=== PATIENT | male | born 1965 | race Caucasian/White ===

== ENCOUNTER 2017-12-22 16:45 | Emergency (ER) | payer MEDICAID ==
[~2017-12-22] VITALS: Ht 188 cm; Wt 119.1 kg
[~2017-12-22 16:45] MED LIST: FENO135C; HYDR1TAB PO; MELO15TA13 PO; MICO30CR; NOR5T PO; TADA5TAB2; TEST200V16; ZIPR40CA2 PO
[2017-12-22 17:12] VITALS: BP 158/117
== END 2017-12-22 18:46 | disposition home or self-care (01) ==
LOC: ER 16:46
DX: S80.12XA Contusion of left lower leg, initial encounter (principal); I10 Essential (primary) hypertension; Z98.890 Other specified postprocedural states; Z56.0 Unemployment, unspecified; Z60.2 Problems related to living alone
CPT/HCPCS: 73590; 99284

== ENCOUNTER 2018-02-24 20:10 | Emergency (ER) | payer MEDICAID ==
[~2018-02-24] VITALS: Ht 188 cm; Wt 118.2 kg
[2018-02-24 21:54] VITALS: BP 178/91
== END 2018-02-24 22:10 | disposition home or self-care (01) ==
LOC: ER 20:11
DX: S83.91XA Sprain of unspecified site of right knee, initial encounter (principal); E78.00 Pure hypercholesterolemia, unspecified; I10 Essential (primary) hypertension; Z87.891 Personal history of nicotine dependence; Z60.2 Problems related to living alone; Z79.899 Other long term (current) drug therapy; X58.XXXA Exposure to other specified factors, initial encounter; Y93.89 Activity, other specified; Y92.89 Other specified places as the place of occurrence of the external cause; Y99.8 Other external cause status
CPT/HCPCS: 73564; 99284

== ENCOUNTER 2018-08-30 09:14 | Emergency (ER) | payer MEDICAID ==
[~2018-08-30] VITALS: Ht 188 cm; Wt 77.3 kg
[2018-08-30 09:36] VITALS: BP 176/93
[2018-08-30] MEDS ORDERED: ketorolac tromethamine 15mg/ml inj. IM ONE (09:50)
[2018-08-30] MEDS ORDERED: triamcinolone acetonide 40mg/ml inj IM ONE (09:50)
[2018-08-30] MEDS ORDERED: METH4TAB81 PO (09:53)
== END 2018-08-30 10:37 | disposition home or self-care (01) ==
LOC: ER 09:15
DX: M54.5 Low back pain (principal); R10.2 Pelvic and perineal pain; I10 Essential (primary) hypertension; E78.00 Pure hypercholesterolemia, unspecified; M19.90 Unspecified osteoarthritis, unspecified site; Z60.2 Problems related to living alone; Z79.899 Other long term (current) drug therapy
CPT/HCPCS: 72100; 72170; 96372; 99283; J3301

== ENCOUNTER 2019-04-20 18:22 | Emergency (ER) | payer MEDICAID ==
[~2019-04-20] VITALS: Ht 188 cm; Wt 118.0 kg
[~2019-04-20 18:22] MED LIST changes: +METH4TAB81 PO
[2019-04-20 18:25] VITALS: BP 173/105
[2019-04-20] MEDS ORDERED: LORazepam 1 MG tablet PO ONE (19:45)
[2019-04-20] MEDS ORDERED: HYDROcodone/acetaminophen 10/325mg tab PO ONE (19:45)
[2019-04-20] MEDS ORDERED: HYDR-4353 PO (20:18)
== END 2019-04-20 20:31 | disposition home or self-care (01) ==
LOC: ER 18:22
DX: M25.561 Pain in right knee (principal); E78.00 Pure hypercholesterolemia, unspecified; I10 Essential (primary) hypertension; M19.90 Unspecified osteoarthritis, unspecified site; Z98.890 Other specified postprocedural states; Z79.899 Other long term (current) drug therapy; Z60.2 Problems related to living alone
CPT/HCPCS: 29505; 73564; 99283

== ENCOUNTER 2019-07-29 08:49 | Day surgery (SDC) | payer MEDICAID ==
[2019-07-21 14:14] LABS: BASOPHILS # (AUTO) 0.1 X10'3 (0-0.2); BASOPHILS % (AUTO) 0.7 % (0-1); EOSINOPHILS # (AUTO) 0.1 X10'3 (0-0.9); EOSINOPHILS % (AUTO) 1.5 % (0-6); LYMPHOCYTES # (AUTO) 1.3 X10'3 (1.1-4.8); LYMPHOCYTES % (AUTO) 16.2 % (21-51); MEAN CORPUSCULAR HEMOGLOBIN 31.8 PG (27.0-31.0); MEAN CORPUSCULAR HGB CONC 35.1 g/dL (33.0-36.5); MEAN CORPUSCULAR VOLUME 90.5 FL (78-98); MEAN PLATELET VOLUME 9.5 FL (7.4-10.4); MONOCYTES # (AUTO) 0.6 X10'3 (0-0.9); MONOCYTES % (AUTO) 7.2 % (2-12); NEUTROPHILS # (AUTO) 6.1 X10'3 (1.8-7.7); NEUTROPHILS % (AUTO) 74.4 % (42-75); PRE OP HEMATOCRIT 42.8 % (42.0-52.0); PRE OP PLATELET COUNT 218 X10'3 (140-440); RED BLOOD COUNT 4.73 X10'6 (4.70-6.10)
[2019-07-21 14:34] LABS: ALBUMIN/GLOBULIN RATIO 1.2 (1.1-1.5); ALKALINE PHOSPHATASE 55 IU/L (46-116); BLOOD UREA NITROGEN 21 MG/DL (7-18); BUN/CREATININE RATIO 14.6 (5.4-32.0); CALCIUM 9.1 MG/DL (8.5-10.1); CHLORIDE 106 MMOL/L (99-107); CREATININE 1.44 MG/DL (0.60-1.10); PRE OP ALT 44 U/L (30-65); PRE OP ANION GAP 9 (8-16); PRE OP AST 21 U/L (10-37); PRE OP BILIRUB, TOTAL 0.5 MG/DL (0.0-1.0); PRE OP GLUCOSE 118 MG/DL (70-104); PRE OP POTASSIUM 4.1 MMOL/L (3.4-5.1); PRE OP SODIUM 140 MMOL/L (135-145); TOTAL CARBON DIOXIDE 25.1 MMOL/L (24-32); TOTAL PROTEIN 7.4 G/DL (6.4-8.2); eGFR 51 ML/MIN
[2019-07-29] VITALS (7 sets, daily range): BP systolic 135–152; BP diastolic 80–98
[~2019-07-29] VITALS: Ht 188 cm; Wt 118.8 kg
[~2019-07-29 08:49] MED LIST changes: -HYDR1TAB PO; -METH4TAB81 PO; -MICO30CR; -TADA5TAB2; -TEST200V16; +cefazolin/dext.iso 2gm/100 ML IV ONE; +famotidine 20mg tablet PO ONE; +ringers solution, lacted 1,000 ML IV SCH; +vancomycin inj 1,500 MG in normal saline 300ml IV soln IV ONE; +vancomycin/NS 1 GM ADD-VANTAGE 250 ML X 1 DOSE IV ONE; +vancomycin/NS 500MG ADD-VANT 100 ML IV ONE
[2019-07-29] MEDS ORDERED: ringers solution, lacted 1,000 ML IV SCH (10:11)
[2019-07-29] MEDS ORDERED: meperidine/PF 25mg/ml syringe IV PRN ×3 (10:15)
[2019-07-29] MEDS ORDERED: morphine 4 MG/ML inj SYRINge IV PRN ×2 (10:15)
[2019-07-29] MEDS ORDERED: ondansetron/PF 4mg/2ml inj IV PRN (10:15)
[2019-07-29] MEDS ORDERED: proCHLORperazine 10 MG/2 ml inj IV PRN (10:15)
[2019-07-29] MEDS ORDERED: triamcinolone acetonide 40mg/ml inj ONE (10:46)
[2019-07-29] MEDS ORDERED: BUPIVAcaine/PF 2.5 mg/ml (0.25%) 30ml vial ONE (10:46)
[2019-07-29] MEDS ORDERED: sevoflurane 250ml liquid IH ONE (10:52)
[2019-07-29] MEDS ORDERED: fentaNYL /PF 50mcg/ml 5ml ampule ONE (10:56)
[2019-07-29] MEDS ORDERED: midazolam 2 mg/2 ml injection ONE (10:56)
[2019-07-29] MEDS ORDERED: propofol inj 20 ML IV ONE (12:00)
--- NOTE | 2019-07-29 12:05 | NUR ---
ADMITTED TO PACU FROM OR ACCOMPANIED BY ANESTHESIA. INTIAL PHYSICAL ASSESSMENT DONE AND RECORDED. REPORT RECEIVED FROM ANESTHESIA.
--- NOTE | 2019-07-29 13:00 | NUR ---
DISCHARGE CRITERIA MET, DISCHARGE INSTRUCTIONS GIVEN, DEMONSTRATES VERBAL UNDERSTANDING. DISCHARGED HOME IN GOOD CONDITION.
== END 2019-07-29 13:00 | disposition home or self-care (01) ==
LOC: PAS 08:49
PROVIDERS: ATTEND Orthopaedic Surgery
DX: S83.231A Complex tear of medial meniscus, current injury, right knee, initial encounter (principal); S83.271A Complex tear of lateral meniscus, current injury, right knee, initial encounter; M17.11 Unilateral primary osteoarthritis, right knee; M94.261 Chondromalacia, right knee; G89.4 Chronic pain syndrome; E66.8 Other obesity; Z68.42 Body mass index [BMI] 45.0-49.9, adult; Z98.890 Other specified postprocedural states; Z87.891 Personal history of nicotine dependence; Z79.01 Long term (current) use of anticoagulants; Z79.899 Other long term (current) drug therapy; X58.XXXA Exposure to other specified factors, initial encounter; Y93.89 Activity, other specified; Y92.89 Other specified places as the place of occurrence of the external cause; Y99.8 Other external cause status
CPT/HCPCS: 29873; 29879; 29880; 36415; 80053; 82948; 85025; 93005; J2250; J2704; J3010; J3301; J3370; J3490; A4215; A4618; A6250; A6449; A7000; J7120

== ENCOUNTER 2020-03-05 16:28 | Emergency (ER) | payer MEDICAID ==
[~2020-03-05] VITALS: Ht 188 cm; Wt 120.0 kg
[~2020-03-05 16:28] MED LIST changes: -cefazolin/dext.iso 2gm/100 ML IV ONE; -famotidine 20mg tablet PO ONE; -ringers solution, lacted 1,000 ML IV SCH; -vancomycin inj 1,500 MG in normal saline 300ml IV soln IV ONE; -vancomycin/NS 1 GM ADD-VANTAGE 250 ML X 1 DOSE IV ONE; -vancomycin/NS 500MG ADD-VANT 100 ML IV ONE
[2020-03-05 16:34] VITALS: BP 152/99
== END 2020-03-05 17:37 | disposition home or self-care (01) ==
LOC: ER 16:28
DX: S99.921A Unspecified injury of right foot, initial encounter (principal); M79.671 Pain in right foot; M79.89 Other specified soft tissue disorders; E78.00 Pure hypercholesterolemia, unspecified; I10 Essential (primary) hypertension; M19.90 Unspecified osteoarthritis, unspecified site; Z60.2 Problems related to living alone; Z79.899 Other long term (current) drug therapy; X58.XXXA Exposure to other specified factors, initial encounter; Y93.89 Activity, other specified; Y92.89 Other specified places as the place of occurrence of the external cause; Y99.8 Other external cause status
CPT/HCPCS: 73630; 99283

== ENCOUNTER 2021-07-12 05:58 | Day surgery (SDC) | payer MEDICAID ==
[2021-07-04 11:46] LABS: BASOPHILS % (AUTO) 0.6 % (0-1); EOSINOPHILS # (AUTO) 0.1 X10'3 (0-0.9); EOSINOPHILS % (AUTO) 1.3 % (0-6); LYMPHOCYTES # (AUTO) 1.3 X10'3 (1.1-4.8); LYMPHOCYTES % (AUTO) 19.9 % (21-51); MEAN CORPUSCULAR HEMOGLOBIN 31.3 PG (27.0-31.0); MEAN CORPUSCULAR HGB CONC 34.5 g/dL (33.0-36.5); MEAN CORPUSCULAR VOLUME 90.7 FL (78-98); MEAN PLATELET VOLUME 10.4 FL (7.4-10.4); MONOCYTES # (AUTO) 0.4 X10'3 (0-0.9); MONOCYTES % (AUTO) 5.9 % (2-12); NEUTROPHILS # (AUTO) 4.7 X10'3 (1.8-7.7); NEUTROPHILS % (AUTO) 72.3 % (42-75); PRE OP HEMATOCRIT 41.4 % (42.0-52.0); PRE OP HEMOGLOBIN 14.3 g/dL (14.0-17.9); PRE OP PLATELET COUNT 214 X10'3 (140-440); RED BLOOD COUNT 4.56 X10'6 (4.70-6.10); RED CELL DISTRIBUTION WIDTH 12.8 % (11.5-14.5)
[2021-07-04 11:52] LABS: ALBUMIN/GLOBULIN RATIO 1.2 (1.1-1.5); ALKALINE PHOSPHATASE 67 IU/L (46-116); BLOOD UREA NITROGEN 13 MG/DL (7-18); BUN/CREATININE RATIO 11.5 (5.4-32.0); CALCIUM 8.8 MG/DL (8.5-10.1); CHLORIDE 105 MMOL/L (99-107); CREATININE 1.13 MG/DL (0.60-1.10); PRE OP ALT 53 U/L (30-65); PRE OP ANION GAP 13 (8-16); PRE OP AST 25 U/L (10-37); PRE OP BILIRUB, TOTAL 0.4 MG/DL (0.0-1.0); PRE OP GLUCOSE 96 MG/DL (70-104); PRE OP POTASSIUM 3.9 MMOL/L (3.4-5.1); PRE OP SODIUM 141 MMOL/L (135-145); TOTAL CARBON DIOXIDE 22.7 MMOL/L (24-32); TOTAL PROTEIN 7.4 G/DL (6.4-8.2); eGFR 67 ML/MIN
[~2021-07-12] VITALS: Ht 188 cm; Wt 119.4 kg
[2021-07-12] VITALS (9 sets, daily range): BP systolic 105–137; BP diastolic 67–83
[~2021-07-12 05:58] MED LIST changes: +AMLO10TA13 PO; +FENO134C PO; -FENO135C; +LOSA100T57 PO; -NOR5T PO; +PRAV20TA4 PO; +VANCOMYCIN INJ 1000 MG in NORMAL SALINE 250ml IV.SOLN IV ONE; +ceFAZolin 2gm in dextrose, iso 50 ML IV ONE; +ceFAZolin/D5W- 1GM premix 50 ML IV ONE; +famotidine 20mg tablet PO ONE; +ringers solution, lacted 1,000 ML IV SCH
[2021-07-12] MEDS ORDERED: dexamethasone sod phosphate 10mg/ml inj ONE (08:12)
[2021-07-12] MEDS ORDERED: ondansetron/PF 4mg/2ml inj ONE (08:12)
[2021-07-12] MEDS ORDERED: sevoflurane 250ml liquid IH ONE (08:12)
[2021-07-12] MEDS ORDERED: fentaNYL/PF 50MCG/1 ML 2ML syringe ONE (08:19)
[2021-07-12] MEDS ORDERED: midazolam 1 mg/ML 2ml injection ONE (08:19)
[2021-07-12] MEDS ORDERED: propofol inj 20 ML IV ONE (08:21)
[2021-07-12] MEDS ORDERED: BUPIVAcaine/PF 2.5mg/ml (0.25%) 10ml vial ONE (08:36)
[2021-07-12] MEDS ORDERED: triamcinolone acetonide 40mg/ml inj ONE (08:37)
[2021-07-12] MEDS ORDERED: morphine 2 MG/ML inj. syringe IV PRN (08:55)
[2021-07-12] MEDS ORDERED: meperidine/PF 25mg/ml syringe IV PRN ×3 (08:55)
[2021-07-12] MEDS ORDERED: morphine 4 MG/ML inj SYRINge IV PRN (08:55)
[2021-07-12] MEDS ORDERED: ondansetron/PF 4mg/2ml inj IV PRN (08:55)
[2021-07-12] MEDS ORDERED: ringers solution, lacted 1,000 ML IV SCH (08:55)
[2021-07-12] MEDS ORDERED: proCHLORperazine 10 MG/2 ml inj IV PRN (08:55)
[2021-07-12] MEDS ORDERED: labetalol 20mg/4ml (5mg/ml) syringe IV PRN (08:55)
--- NOTE | 2021-07-12 09:22 | NUR ---
Received from OR via CATALINA IN STABLE CONDITION , accompanied by Anesthesiologist and NUCLEAR POWERPLANT MECHANIC HELPER report given by NUCLEAR POWERPLANT MECHANIC HELPER AND Anesthesiolgist. Addendum: 07/12/21 at 0948 by Francisca Barron RN Amended: Links added.
--- NOTE | 2021-07-12 12:02 | NUR ---
PATIENT DISCHARGED FROM PACU IN STABLE CONDITION AFTER WRITTEN AND VERBAL DISCHARGE INSTRUCTIONS GIVEN. PATIENT GAVE VERBAL UNDERSTANDING OF INSTRUCTIONS GIVEN. PATIENT LEFT FACILITY VIA WHEELCHAIR WITH RN. Addendum: 07/12/21 at 1218 by Francisca Barron RN Amended: Links added.
== END 2021-07-12 12:02 | disposition home or self-care (01) ==
LOC: PAS 05:58
PROVIDERS: ATTEND Orthopaedic Surgery
DX: S83.231A Complex tear of medial meniscus, current injury, right knee, initial encounter (principal); S83.271A Complex tear of lateral meniscus, current injury, right knee, initial encounter; M17.11 Unilateral primary osteoarthritis, right knee; M94.261 Chondromalacia, right knee; I10 Essential (primary) hypertension; E66.01 Morbid (severe) obesity due to excess calories; Z68.42 Body mass index [BMI] 45.0-49.9, adult; F20.0 Paranoid schizophrenia; G89.29 Other chronic pain; Z86.14 Personal history of Methicillin resistant Staphylococcus aureus infection; Z79.899 Other long term (current) drug therapy; Z98.890 Other specified postprocedural states; Z87.891 Personal history of nicotine dependence; X58.XXXA Exposure to other specified factors, initial encounter; Y93.89 Activity, other specified; Y92.89 Other specified places as the place of occurrence of the external cause; Y99.8 Other external cause status
CPT/HCPCS: 29873; 29879; 29880; 36415; 80053; 82948; 85025; 93005; J1100; J2250; J2405; J2704; J3010; J3301; J3370; J3490; U0003; U0005; Z7506; Z7508; Z7512; A4215; A4618; A6250; A6449; A7000; J7120

== ENCOUNTER 2022-02-12 08:47 | Inpatient (IN) | payer MEDICAID ==
[2022-02-05 16:04] LABS: BASOPHILS # (AUTO) 0.1 X10'3 (0-0.2); LYMPHOCYTES # (AUTO) 1.3 X10'3 (1.1-4.8); PRE OP HEMOGLOBIN 14.2 g/dL (14.0-17.9); PRE OP PLATELET COUNT 177 X10'3 (140-440)
[2022-02-05 16:05] LABS: BASOPHILS % (AUTO) 1.1 % (0-1); EOSINOPHILS # (AUTO) 0.1 X10'3 (0-0.9); EOSINOPHILS % (AUTO) 2.2 % (0-6); LYMPHOCYTES % (AUTO) 19.8 % (21-51); MEAN CORPUSCULAR HEMOGLOBIN 30.9 PG (27.0-31.0); MEAN CORPUSCULAR HGB CONC 34.7 g/dL (33.0-36.5); MEAN CORPUSCULAR VOLUME 89.2 FL (78-98); MEAN PLATELET VOLUME 10.5 FL (7.4-10.4); MONOCYTES # (AUTO) 0.5 X10'3 (0-0.9); MONOCYTES % (AUTO) 6.8 % (2-12); NEUTROPHILS # (AUTO) 4.6 X10'3 (1.8-7.7); NEUTROPHILS % (AUTO) 70.1 % (42-75); PRE OP HEMATOCRIT 40.9 % (42.0-52.0); RED BLOOD COUNT 4.59 X10'6 (4.70-6.10); RED CELL DISTRIBUTION WIDTH 13.1 % (11.5-14.5)
[2022-02-05 16:20] LABS: ALBUMIN/GLOBULIN RATIO 1.3 (1.1-1.5); ALKALINE PHOSPHATASE 46 IU/L (46-116); BLOOD UREA NITROGEN 22 MG/DL (7-18); CALCIUM 8.7 MG/DL (8.5-10.1); CHLORIDE 107 MMOL/L (99-107); CREATININE 1.47 MG/DL (0.60-1.10); PRE OP ALT 42 U/L (30-65); PRE OP ANION GAP 11 (8-16); PRE OP AST 23 U/L (10-37); PRE OP BILIRUB, TOTAL 0.5 MG/DL (0.0-1.0); PRE OP GLUCOSE 115 MG/DL (70-104); PRE OP POTASSIUM 3.9 MMOL/L (3.4-5.1); PRE OP SODIUM 140 MMOL/L (135-145); TOTAL CARBON DIOXIDE 21.7 MMOL/L (24-32); TOTAL PROTEIN 7.1 G/DL (6.4-8.2); eGFR 49 ML/MIN
[2022-02-12] VITALS (18 sets, daily range): BP systolic 80–171; BP diastolic 44–98
[~2022-02-12] VITALS: Ht 188 cm; Wt 121.1 kg
[2022-02-12] MEDS: multivitamins, therapeutics tablet PO SCH (08:00)
[2022-02-12] MEDS: amLODIPine 5mg tablet PO SCH (08:00)
[2022-02-12] MEDS: losartan 50mg tablet PO SCH (08:00)
[2022-02-12] MEDS: ceFAZolin/D5W- 1GM premix 50 ML IV SCH ×2 (08:00→16:00)
[2022-02-12] MEDS: gabapentin 300mg capsule PO SCH ×3 (08:00→21:06)
[2022-02-12] MEDS: ascorbic acid 500mg tablet PO SCH ×2 (08:00→20:03)
[2022-02-12] MEDS: ziprasidone 20mg capsule PO SCH ×2 (08:00→21:00)
[2022-02-12] MEDS: aspirin 325mg tablet PO SCH (08:30)
[~2022-02-12 08:47] MED LIST changes: -FENO134C PO; +FENO134C21 PO; +HYDR-3972 PO; +HYDROmorphone 1 mg/ml syringe IV PRN; +HYDROmorphone inj. 0.5 MG/0.5 ML DISP.SYRIN IV PRN; +KETO15CR2 TOP; +SILD100T70 PO; -VANCOMYCIN INJ 1000 MG in NORMAL SALINE 250ml IV.SOLN IV ONE; +acetaminophen 325mg tablet PO ONE; +acetaminophen 325mg tablet PO PRN; +bisacodyl 10mg suppository rectal RC PRN; -ceFAZolin 2gm in dextrose, iso 50 ML IV ONE; +ceFAZolin inj. 3,000 MG in normal saline 100ml IV soln 100 ML IV ONE; -ceFAZolin/D5W- 1GM premix 50 ML IV ONE; +celeCOXIB 100mg capsule PO ONE; +diphenhydrAMINE 25mg capsule PO PRN; +gabapentin 300mg capsule PO ONE; +magnesium hydroxide 30ml (MOM) UD suspension PO PRN; +metoclopramide 5 mg/ml inj IV ONE; +naloxone 0.4 mg/ml inj IV PRN; +ondansetron/PF 4mg/2ml inj IV PRN; +oxyCODONE SR 10mg (sust. release) tab -2 tabs (20mg) PO ONE; +tranexamic acid inj. 1,000 MG in normal saline 100ml IV soln 90 ML IV ONE; +vancomycin 1,500 MG in NS 300ml IV soln IV ONE
[2022-02-12] MEDS: ceFAZolin inj. 3,000 MG in normal saline 100ml IV soln 100 ML IV ONE (10:20)
[2022-02-12] MEDS ORDERED: tranexamic acid inj. 1,000 MG in normal saline 100ml IV soln 90 ML IV ONE (10:25)
[2022-02-12] MEDS ORDERED: vancomycin 1,500 MG in NS 300ml IV soln IV ONE (10:25)
--- NOTE | 2022-02-12 11:00 | NUR ---
PT ABLE TO DO ALL 5 SHOWERS BUT NO OINTMENT, WATCHED DVD, [place], WARM, + CIRCULATION.
[2022-02-12] MEDS ORDERED: ketorolac trometh. 30mg/ml inj. ONE (11:55)
[2022-02-12] MEDS ORDERED: epiNEPHrine 1 mg/ml inj ONE (11:55)
[2022-02-12] MEDS ORDERED: cloNIDine hcl/PF 100mcg/ml inj ONE (11:55)
[2022-02-12] MEDS ORDERED: vancomycin 1,000mg inj ONE (11:55)
[2022-02-12] MEDS ORDERED: ROPIVAcaine 0.5% (5mg/ml) 30ml vial ONE ×2 (11:56→13:30)
[2022-02-12] MEDS ORDERED: fentaNYL/PF 50MCG/1 ML 2ML syringe ONE (12:18)
[2022-02-12] MEDS ORDERED: MIDAZolam 1mg/ml 10ml vial ONE (12:18)
[2022-02-12] MEDS ORDERED: morphine 2 MG/ML inj. syringe IV PRN (13:10)
[2022-02-12] MEDS ORDERED: meperidine/PF 25mg/ml syringe IV PRN ×3 (13:10)
[2022-02-12] MEDS ORDERED: ROPIVAcaine 0.2% (10 MG/5 ML) BOLUS INJECTION ADDCANAL PRN (13:10)
[2022-02-12] MEDS ORDERED: ringers solution, lacted 1,000 ML IV SCH (13:10)
[2022-02-12] MEDS ORDERED: morphine 4 MG/ML inj SYRINge IV PRN (13:10)
[2022-02-12] MEDS ORDERED: ondansetron/PF 4mg/2ml inj IV PRN (13:10)
[2022-02-12] MEDS ORDERED: ROPIVAcaine 0.2%/PF PUMP/bolus 545 ML ADDCANAL SCH (13:10)
[2022-02-12] MEDS ORDERED: proCHLORperazine 10 MG/2 ml inj IV PRN (13:10)
[2022-02-12] MEDS ORDERED: BUPIVAcaine 0.5% inj/PF 60 ML ONE (13:27)
[2022-02-12] MEDS ORDERED: BUPIVAcaine 0.5% W/EPI /PF 10ml vial ONE (13:51)
--- NOTE | 2022-02-12 14:19 | NUR ---
Received from OR via BED, 20G TO LEFT HAND, [place] DRESSING TO RIGHT KNEE CDI, KNEE WRAP WITH POWDER PACK IN PLACE, accompanied by Anesthesiologist DR TENORIO and report given by Anesthesiolgist. Addendum: 02/12/22 at 1449 by Kathy Ronquillo RN Amended: Links added.
[2022-02-12] MEDS ORDERED: cefazolin/dext.iso 2gm/100ml 100 ML IV SCH (16:00)
[2022-02-12] MEDS: potassium cl 20mEq in 1/2 NS 1,000 ML IV SCH ×2 (17:15→23:05)
[2022-02-12] MEDS ORDERED: tranexamic acid inj. 1,000 MG in normal saline 100ml IV soln 100 ML IV ONE (17:30)
--- NOTE | 2022-02-12 18:59 | NUR ---
MULTIPLE CALLS TO PHARM FOR TXA. WAS DUE AT 4239. CALL PLACED SPOKE WITH JUDIE IN PHARM WILL BRING IT UP NOW
--- NOTE | 2022-02-12 19:19 | NUR ---
PATIENT TAKEN TO ROOM WITH ALL BELONGINGS AND HOOKED UP TO MONITORS IN ROOM AND GIVEN CALL LIGHT, REPORT GIVEN TO RN WHO HAS TAKEN OVER PATIENT CARE. Addendum: 02/12/22 at 1924 by Kathy Ronquillo RN Amended: Links added.
[2022-02-12] MEDS: oxyCODONE/APAP 10/325mg tablet PO PRN (20:02)
[2022-02-12] MEDS: sennosides 8.6mg tablet PO SCH (21:00)
[2022-02-12] MEDS: fenofibrate 145mg tablet PO SCH (21:00)
[2022-02-12] MEDS ORDERED: vancomycin inj 1,750 MG in normal saline 500ml IV soln 350 ML IV ONE (21:05)
[2022-02-12] MEDS: atorvastatin 10mg tablet PO SCH (21:06)
[2022-02-13] MEDS: potassium cl 20mEq in 1/2 NS 1,000 ML IV SCH ×4 (00:42→19:54)
[2022-02-13] MEDS: ceFAZolin/D5W- 1GM premix 50 ML IV SCH ×2 (00:42→10:03)
[2022-02-13] MEDS: oxyCODONE/APAP 10/325mg tablet PO PRN ×3 (00:42→19:54)
[2022-02-13 02:00] VITALS: BP 98/55
[2022-02-13] MEDS ORDERED: ceFAZolin inj. 3,000 MG in normal saline 100ml IV soln 100 ML IV ONE (05:30)
[2022-02-13 06:00] VITALS: BP 109/62
[2022-02-13 07:01] LABS: BASOPHILS % (AUTO) 0.1 % (0-1); EOSINOPHILS % (AUTO) 0 % (0-6); HEMATOCRIT 36.2 % (42.0-52.0); HEMOGLOBIN 12.2 g/dl (14.0-17.9); LYMPHOCYTES # (AUTO) 0.7 X10'3 (1.1-4.8); LYMPHOCYTES % (AUTO) 6.5 % (21-51); MEAN CORPUSCULAR HEMOGLOBIN 29.8 PG (27.0-31.0); MEAN CORPUSCULAR HGB CONC 33.7 g/dL (33.0-36.5); MEAN CORPUSCULAR VOLUME 88.6 FL (78-98); MONOCYTES # (AUTO) 0.5 X10'3 (0-0.9); MONOCYTES % (AUTO) 4.9 % (2-12); NEUTROPHILS # (AUTO) 9.5 X10'3 (1.8-7.7); NEUTROPHILS % (AUTO) 88.5 % (42-75); PLATELET COUNT 147 X10'3 (140-440); RED BLOOD COUNT 4.08 X10'6 (4.70-6.10); RED CELL DISTRIBUTION WIDTH 13.3 % (11.5-14.5); WHITE BLOOD COUNT 10.7 X10'3 (4.5-11.0)
--- NOTE | 2022-02-13 07:08 | NUR ---
Patient in room ORTHO 4012. I have received report from MAYCOL Fuller and had the opportunity to ask questions and assume patient care.
[2022-02-13 07:16] LABS: ANION GAP 11 (8-16); CHLORIDE 104 MMOL/L (99-107); POTASSIUM 4.7 MMOL/L (3.5-5.1); SODIUM 136 MMOL/L (135-145); TOTAL CARBON DIOXIDE 20.6 MMOL/L (24-32)
[2022-02-13] MEDS ORDERED: cefazolin/dext.iso 2gm/100ml 100 ML IV ONE (08:00)
--- NOTE | 2022-02-13 09:15 | NUR ---
Joint surgery consult: Pt s/p R knee surgery this admit per EMR. Pt seen by RD for written/verbal high protein ed w/ RD contact information provided. Pt requests double proteins w/ meals; dietary notified to send double eggs WB and double meats BIDLD. RD encouraged pt to contact dietitian's office if further questions/concerns. Addendum: 02/13/22 at [address] Amended: Links added.
[2022-02-13] MEDS: ziprasidone 20mg capsule PO SCH ×2 (09:42→19:52)
[2022-02-13] MEDS: ascorbic acid 500mg tablet PO SCH ×2 (09:42→19:52)
[2022-02-13] MEDS: multivitamins, therapeutics tablet PO SCH (09:42)
[2022-02-13] MEDS: aspirin 325mg tablet PO SCH (09:42)
[2022-02-13] MEDS: fenofibrate 145mg tablet PO SCH (09:43)
[2022-02-13] MEDS: amLODIPine 5mg tablet PO SCH (09:45)
[2022-02-13] MEDS: gabapentin 300mg capsule PO SCH ×3 (09:46→19:52)
[2022-02-13] MEDS: losartan 50mg tablet PO SCH (09:47)
[2022-02-13 10:00] VITALS: BP 106/55
[2022-02-13] MEDS ORDERED: ondansetron 4mg rapidly disintigrating tab PO PRN (11:15)
[2022-02-13 14:00] VITALS: BP 116/64
--- NOTE | 2022-02-13 15:06 | NUR ---
Notified Dr. Adam that upon working with the patient today PT evaluation was that he was not ready for discharge. Dr. Adam approved another night. PT will work with the patient again in the morning.
[2022-02-13 18:00] VITALS: BP 96/53
--- NOTE | 2022-02-13 18:21 | NUR ---
Problems reprioritized. Patient report given, questions answered & plan of care reviewed with MAYCOL Kelsey.
--- NOTE | 2022-02-13 18:45 | NUR ---
Patient in room ORTHO 4012. I have received report from [facility] SEVERINO and had the opportunity to ask questions and assume patient care.
[2022-02-13] MEDS: atorvastatin 10mg tablet PO SCH (19:52)
[2022-02-13] MEDS: celeCOXIB 100mg capsule PO SCH (19:53)
[2022-02-13] MEDS: sennosides 8.6mg tablet PO SCH (19:54)
[2022-02-13 22:00] VITALS: BP 116/61
[2022-02-14 06:00] VITALS: BP 135/79
[2022-02-14] MEDS: oxyCODONE/APAP 10/325mg tablet PO PRN ×3 (06:00→14:05)
--- NOTE | 2022-02-14 06:06 | NUR ---
Problems reprioritized. Patient report given, questions answered & plan of care reviewed with Mercy SEVERINO.
--- NOTE | 2022-02-14 06:07 | NUR ---
Patient in room ORTHO 4012. I have received report from MAYCOL Kelsey and had the opportunity to ask questions and assume patient care.
[2022-02-14 07:02] LABS: BASOPHILS % (AUTO) 0.4 % (0-1); EOSINOPHILS # (AUTO) 0.1 X10'3 (0-0.9); EOSINOPHILS % (AUTO) 1.6 % (0-6); HEMATOCRIT 32.3 % (42.0-52.0); HEMOGLOBIN 10.8 g/dl (14.0-17.9); LYMPHOCYTES # (AUTO) 0.9 X10'3 (1.1-4.8); LYMPHOCYTES % (AUTO) 13.6 % (21-51); MEAN CORPUSCULAR HEMOGLOBIN 30.1 PG (27.0-31.0); MEAN CORPUSCULAR HGB CONC 33.4 g/dL (33.0-36.5); MEAN CORPUSCULAR VOLUME 90.3 FL (78-98); MEAN PLATELET VOLUME 10.7 FL (7.4-10.4); MONOCYTES # (AUTO) 0.9 X10'3 (0-0.9); MONOCYTES % (AUTO) 13.7 % (2-12); NEUTROPHILS # (AUTO) 4.7 X10'3 (1.8-7.7); NEUTROPHILS % (AUTO) 70.7 % (42-75); PLATELET COUNT 120 X10'3 (140-440); RED BLOOD COUNT 3.58 X10'6 (4.70-6.10); RED CELL DISTRIBUTION WIDTH 13.8 % (11.5-14.5); WHITE BLOOD COUNT 6.6 X10'3 (4.5-11.0)
[2022-02-14] MEDS: amLODIPine 5mg tablet PO SCH (08:17)
[2022-02-14] MEDS: celeCOXIB 100mg capsule PO SCH (08:17)
[2022-02-14 08:18] VITALS: BP_SYST 101
[2022-02-14] MEDS: gabapentin 300mg capsule PO SCH ×2 (08:18→12:59)
[2022-02-14] MEDS: multivitamins, therapeutics tablet PO SCH (08:18)
[2022-02-14] MEDS: losartan 50mg tablet PO SCH (08:18)
[2022-02-14] MEDS: aspirin 325mg tablet PO SCH (08:18)
[2022-02-14] MEDS: ascorbic acid 500mg tablet PO SCH (08:18)
[2022-02-14] MEDS: ziprasidone 20mg capsule PO SCH (08:19)
[2022-02-14] MEDS: fenofibrate 145mg tablet PO SCH (08:19)
--- NOTE | 2022-02-14 14:50 | NUR ---
Patient was discharged at 1400 with instructions and verbalizing understanding of instructions, in wheelchair accompanied by nursing staff. He was going home via private vehicle, accompanied by his son. All lines and tubes have been removed including IV with cannula intact. Education about post op care has been provided and all questions have been answered. Patient already has a follow up appointment with Dr. Adam. Patient is stable and appropriate for discharge.
== END 2022-02-14 14:10 | disposition home or self-care (01) | DRG 326 ==
LOC: PAS IN 08:47 → EDSTATUS 11:45 → ORTHO 4S 19:45
PROVIDERS: ADMIT Orthopaedic Surgery; ATTEND Orthopaedic Surgery
PROC: 0SRC0J9 Replacement of Right Knee Joint with Synthetic Substitute, Cemented, Open Approach (ICD-10-PCS; principal; 2022-02-12 12:13)
DX: M17.11 Unilateral primary osteoarthritis, right knee (principal); Z79.899 Other long term (current) drug therapy
CPT/HCPCS: 36415; 71046; 73560; 80051; 80053; 82948; 85025; 86885; 86900; 86901; 87081; 97110; 97116; 97161; 97530; A4215; A7000; C1713; C1776; G0378; J0171; J0690; J0735; J1170; J1885; J2250; J2310; J2405; J2765; J2795; J3010; J3370; J3480; J3490; J7040; J7120; Q0163; S0020; U0003; U0005

== ENCOUNTER 2022-03-13 11:49 | Emergency (ER) | payer MEDICAID ==
[~2022-03-13] VITALS: Ht 188 cm; Wt 115.9 kg
[~2022-03-13 11:49] MED LIST changes: -HYDROmorphone 1 mg/ml syringe IV PRN; -HYDROmorphone inj. 0.5 MG/0.5 ML DISP.SYRIN IV PRN; -acetaminophen 325mg tablet PO ONE; -acetaminophen 325mg tablet PO PRN; -bisacodyl 10mg suppository rectal RC PRN; -ceFAZolin inj. 3,000 MG in normal saline 100ml IV soln 100 ML IV ONE; -celeCOXIB 100mg capsule PO ONE; -diphenhydrAMINE 25mg capsule PO PRN; -famotidine 20mg tablet PO ONE; -gabapentin 300mg capsule PO ONE; -magnesium hydroxide 30ml (MOM) UD suspension PO PRN; -metoclopramide 5 mg/ml inj IV ONE; -naloxone 0.4 mg/ml inj IV PRN; -ondansetron/PF 4mg/2ml inj IV PRN; -oxyCODONE SR 10mg (sust. release) tab -2 tabs (20mg) PO ONE; -ringers solution, lacted 1,000 ML IV SCH; -tranexamic acid inj. 1,000 MG in normal saline 100ml IV soln 90 ML IV ONE; -vancomycin 1,500 MG in NS 300ml IV soln IV ONE
[2022-03-13 12:35] LABS: BASOPHILS # (AUTO) 0.1 X10'3 (0-0.2); BASOPHILS % (AUTO) 0.6 % (0-1); EOSINOPHILS % (AUTO) 0.1 % (0-6); HEMOGLOBIN 13.2 g/dl (14.0-17.9); LYMPHOCYTES # (AUTO) 0.2 X10'3 (1.1-4.8); LYMPHOCYTES % (AUTO) 2.1 % (21-51); MEAN CORPUSCULAR HEMOGLOBIN 30.3 PG (27.0-31.0); MEAN CORPUSCULAR HGB CONC 33.9 g/dL (33.0-36.5); MEAN CORPUSCULAR VOLUME 89.3 FL (78-98); MEAN PLATELET VOLUME 9.8 FL (7.4-10.4); MONOCYTES # (AUTO) 0.5 X10'3 (0-0.9); MONOCYTES % (AUTO) 4.9 % (2-12); NEUTROPHILS # (AUTO) 9.7 X10'3 (1.8-7.7); NEUTROPHILS % (AUTO) 92.3 % (42-75); PLATELET COUNT 168 X10'3 (140-440); RED BLOOD COUNT 4.37 X10'6 (4.70-6.10); RED CELL DISTRIBUTION WIDTH 13.8 % (11.5-14.5); WHITE BLOOD COUNT 10.5 X10'3 (4.5-11.0)
[2022-03-13 12:54] LABS: ALANINE AMINOTRANSFERASE 90 U/L (12-78); ALBUMIN 4.2 G/DL (3.4-5.0); ALBUMIN/GLOBULIN RATIO 1.3 (1.1-1.5); ALKALINE PHOSPHATASE 64 IU/L (46-116); ANION GAP 12 (8-16); ASPARTATE AMINO TRANSFERASE 60 U/L (10-37); BILIRUBIN,TOTAL 1.4 MG/DL (0.1-1.0); BLOOD UREA NITROGEN 18 MG/DL (7-18); BUN/CREATININE RATIO 12.1 (5.4-32.0); CALCIUM 9.4 MG/DL (8.5-10.1); CHLORIDE 103 MMOL/L (99-107); CREATININE 1.49 MG/DL (0.60-1.10); GLUCOSE 110 MG/DL (70-104); POTASSIUM 4.7 MMOL/L (3.5-5.1); SODIUM 135 MMOL/L (135-145); TOTAL CARBON DIOXIDE 20.4 MMOL/L (24-32); TOTAL PROTEIN 7.4 G/DL (6.4-8.2); eGFR 48 ML/MIN
[2022-03-13 13:07] LABS: PLATELET ESTIMATE NORMAL; TOTAL CELLS COUNTED 100
[2022-03-13] MEDS ORDERED: ketorolac trometh. 30mg/ml inj. IV ONE (14:10)
[2022-03-13] MEDS ORDERED: normal saline 1000ML IV soln IVB ONE (14:10)
[2022-03-13 14:28] LABS: CLARITY,URINE CLOUDY (Clear); GLUCOSE, URINE 100 mg/dl (Neg); KETONES,URINE TRACE mg/dl (Neg); LEUKOCYTE ESTERASE ,URINE MODERATE (Neg); NITRITES, URINE POSITIVE (Neg); OCCULT BLOOD,URINE TRACE-INTACT (Neg); PROTEIN,URINE 100 mg/dl (Neg)
[2022-03-13 14:34] LABS: UA COLLECTION TYPE CLN CATCH MIDSTREAM
[2022-03-13 14:36] LABS: COLOR,URINE DARK YELLOW (Yellow)
[2022-03-13 14:41] LABS: MUCUS STRANDS MANY /LPF (Neg)
[2022-03-13 14:43] LABS: WBC,URINE TNTC /HPF (0-4)
[2022-03-13] MEDS ORDERED: CefTRIAXone 1000mg IM Kit (w/lidocaine diluent) IM ONE (14:45)
[2022-03-13 14:48] LABS: HYALINE CASTS 0-3 /LPF (NEGATIVE); RBC,URINE 0-2 /HPF (0-2); SPERM FEW /HPF (NEGATIVE); SQUAMOUS EPITHELIAL CELL,UR FEW /LPF (FEW)
[2022-03-13] MEDS ORDERED: CIPR-202 PO (14:48)
[2022-03-13 14:49] LABS: BACTERIA,URINE 3+ /HPF (Neg)
[2022-03-13 14:50] LABS: WBC CLUMPS,URINE FEW /HPF (NEGATIVE)
[2022-03-13 15:00] VITALS: BP 128/80
[2022-03-13] MEDS ORDERED: cefTRIAXone 1g/NS 100ml IVPB 100 ML IV ONE (15:00)
== END 2022-03-13 15:35 | disposition home or self-care (01) ==
LOC: ER 11:50
DX: N39.0 Urinary tract infection, site not specified (principal); E78.00 Pure hypercholesterolemia, unspecified; I10 Essential (primary) hypertension; M19.90 Unspecified osteoarthritis, unspecified site; Z98.890 Other specified postprocedural states; Z87.891 Personal history of nicotine dependence; Z60.2 Problems related to living alone; Z79.899 Other long term (current) drug therapy
CPT/HCPCS: 36415; 74176; 80053; 81001; 85007; 85025; 87077; 87088; 87186; 96361; 96365; 96375; 99284; J0696; J1885; J7030

== ENCOUNTER 2022-07-25 09:13 | Emergency (ER) | payer MEDICAID ==
[~2022-07-25] VITALS: Ht 188 cm; Wt 118.2 kg
[2022-07-25 09:16] VITALS: BP 127/79
[2022-07-25] MEDS ORDERED: LIDOcaine Viscous 15ml cup MM STA (12:34)
[2022-07-25] MEDS ORDERED: XYL25J TOP ×2 (13:22→16:55)
== END 2022-07-25 13:30 | disposition home or self-care (01) ==
LOC: ER 09:14
DX: B34.9 Viral infection, unspecified (principal); J02.9 Acute pharyngitis, unspecified; R05.9 Cough, unspecified; R11.2 Nausea with vomiting, unspecified; E78.00 Pure hypercholesterolemia, unspecified; I10 Essential (primary) hypertension; M19.90 Unspecified osteoarthritis, unspecified site; Z98.890 Other specified postprocedural states; Z60.2 Problems related to living alone; Z79.899 Other long term (current) drug therapy
CPT/HCPCS: 87081; 87880; 99282; 99283

== ENCOUNTER 2023-08-10 18:10 | Emergency (ER) | payer MEDICAID ==
[~2023-08-10] VITALS: Ht 188 cm; Wt 128.7 kg
[~2023-08-10 18:10] MED LIST changes: -LOSA100T57 PO; +LOSA100T58 PO; +XYL25J TOP
[2023-08-10 18:47] LABS: BASOPHILS % (AUTO) 0.4 % (0-1); EOSINOPHILS # (AUTO) 0.1 X10'3 (0-0.9); HEMATOCRIT 39.2 % (42.0-52.0); HEMOGLOBIN 13.3 g/dl (14.0-17.9); LYMPHOCYTES # (AUTO) 1.1 X10'3 (1.1-4.8); LYMPHOCYTES % (AUTO) 11.7 % (21-51); MEAN CORPUSCULAR HEMOGLOBIN 30.7 PG (27.0-31.0); MEAN CORPUSCULAR HGB CONC 33.8 g/dL (33.0-36.5); MEAN PLATELET VOLUME 10.4 FL (7.4-10.4); MONOCYTES # (AUTO) 0.6 X10'3 (0-0.9); MONOCYTES % (AUTO) 6.7 % (2-12); NEUTROPHILS # (AUTO) 7.5 X10'3 (1.8-7.7); NEUTROPHILS % (AUTO) 80.2 % (42-75); PLATELET COUNT 148 X10'3 (140-440); RED BLOOD COUNT 4.31 X10'6 (4.70-6.10); RED CELL DISTRIBUTION WIDTH 13.5 % (11.5-14.5); WHITE BLOOD COUNT 9.4 X10'3 (4.5-11.0)
[2023-08-10 18:58] LABS: ALANINE AMINOTRANSFERASE 65 U/L (12-78); ALBUMIN 3.9 G/DL (3.4-5.0); ALBUMIN/GLOBULIN RATIO 1.3 (1.1-1.5); ALKALINE PHOSPHATASE 55 IU/L (46-116); ANION GAP 10 (8-16); ASPARTATE AMINO TRANSFERASE 36 U/L (10-37); BILIRUBIN,TOTAL 0.7 MG/DL (0.1-1.0); BLOOD UREA NITROGEN 18 MG/DL (7-18); BUN/CREATININE RATIO 13.2 (10.0-20.0); C-REACTIVE PROTEIN 1.04 MG/DL (0.0-0.5); CHLORIDE 102 MMOL/L (99-107); CREATININE 1.36 MG/DL (0.60-1.10); GLUCOSE 132 MG/DL (70-104); LIPASE 41 U/L (16-77); POTASSIUM 4.1 MMOL/L (3.5-5.1); SODIUM 136 MMOL/L (135-145); TOTAL CARBON DIOXIDE 23.7 MMOL/L (24-32); TOTAL PROTEIN 6.8 G/DL (6.4-8.2); eCRCL 68 ML/MIN; eGFR 54 ML/MIN
[2023-08-10] MEDS ORDERED: ketorolac trometh. 30mg/ml inj. IM ONE (19:35)
[2023-08-10] MEDS ORDERED: ciprofloxacin 250mg tablet PO ONE (19:35)
[2023-08-10] MEDS ORDERED: metroNIDAZOLE 500mg tablet PO ONE (19:35)
[2023-08-10] MEDS ORDERED: METR-159 PO (20:04)
[2023-08-10] MEDS ORDERED: CIPR-202 PO (20:04)
[2023-08-10] MEDS ORDERED: PRED20TA PO (20:04)
[2023-08-10] MEDS ORDERED: HYDR-3965 PO (20:05)
[2023-08-10 20:13] VITALS: BP 135/78; PULSE 75; RESP 18; TEMP 97.9; O2SAT 98
== END 2023-08-10 20:14 | disposition home or self-care (01) ==
LOC: ER 18:10
DX: K57.32 Diverticulitis of large intestine without perforation or abscess without bleeding (principal); Z79.2 Long term (current) use of antibiotics
CPT/HCPCS: 36415; 74176; 80053; 83690; 85025; 86140; 96372; 99285; J1885

== ENCOUNTER 2024-01-05 10:44 | Emergency (ER) | payer MEDICAID ==
[~2024-01-05] VITALS: Ht 188 cm; Wt 116.8 kg
[2024-01-05 11:29] VITALS: BP 142/87; PULSE 70; RESP 16; TEMP 97.7; O2SAT 97
== END 2024-01-05 13:35 | disposition home or self-care (01) ==
LOC: ER 10:44
DX: S40.011A Contusion of right shoulder, initial encounter (principal); E78.00 Pure hypercholesterolemia, unspecified; I10 Essential (primary) hypertension; M19.90 Unspecified osteoarthritis, unspecified site; Z79.899 Other long term (current) drug therapy; W19.XXXA Unspecified fall, initial encounter; Y93.89 Activity, other specified; Y92.89 Other specified places as the place of occurrence of the external cause; Y99.8 Other external cause status
CPT/HCPCS: 73030; 99284

== ENCOUNTER 2024-04-08 14:56 | Emergency (ER) | payer MEDICAID ==
[~2024-04-08] VITALS: Ht 182.9 cm; Wt 98.6 kg
[2024-04-08] MEDS: dexamethasone sod phosphate 10mg/ml inj IM STA (15:31)
[2024-04-08] MEDS: ipratropium/albuterol 3ml nebule NEB STA (15:37)
[2024-04-08 15:38] VITALS: PULSE 65; PULSE 78; RESP 16; RESP 18; O2SAT 97; O2SAT 99
[2024-04-08] MEDS ORDERED: PRED20TA PO (15:53)
[2024-04-08] MEDS ORDERED: PROM118S5 PO (15:53)
[2024-04-08] MEDS ORDERED: ALBU8HFA INH (15:53)
[2024-04-08 16:08] VITALS: BP 134/76; PULSE 65; RESP 18; TEMP 98; O2SAT 98
== END 2024-04-08 16:09 | disposition home or self-care (01) ==
LOC: ER 14:56
DX: R05.9 Cough, unspecified (principal); R42 Dizziness and giddiness; E78.00 Pure hypercholesterolemia, unspecified; I10 Essential (primary) hypertension; M19.90 Unspecified osteoarthritis, unspecified site; Z98.890 Other specified postprocedural states; Z56.0 Unemployment, unspecified; Z79.899 Other long term (current) drug therapy; Z79.52 Long term (current) use of systemic steroids
CPT/HCPCS: 71045; 96372; 99284; J1100; 94760

== ENCOUNTER 2024-11-11 12:15 | Emergency (ER) | payer MEDICAID ==
[~2024-11-11] VITALS: Ht 188 cm; Wt 127.3 kg
[~2024-11-11 12:15] MED LIST changes: -ZIPR40CA2 PO; +ZIPR40CA45 PO
[2024-11-11 12:36] VITALS: BP 136/85; PULSE 69; TEMP 97.6; O2SAT 98
[2024-11-11] MEDS ORDERED: IBUP-864 PO (14:17)
[2024-11-11 14:48] VITALS: RESP 18
[2024-11-11] MEDS: HYDROcodone/acetaminophen 10/325mg tab PO ONE (14:48)
== END 2024-11-11 14:54 | disposition home or self-care (01) ==
LOC: ER 12:15
DX: S83.91XA Sprain of unspecified site of right knee, initial encounter (principal); S93.401A Sprain of unspecified ligament of right ankle, initial encounter; S93.601A Unspecified sprain of right foot, initial encounter; E78.00 Pure hypercholesterolemia, unspecified; I10 Essential (primary) hypertension; M19.90 Unspecified osteoarthritis, unspecified site; Z79.899 Other long term (current) drug therapy; W00.0XXA Fall on same level due to ice and snow, initial encounter; Y93.89 Activity, other specified; Y92.89 Other specified places as the place of occurrence of the external cause; Y99.8 Other external cause status
CPT/HCPCS: 29530; 73564; 73610; 99284

== ENCOUNTER 2025-08-26 09:32 | Emergency (ER) | payer MEDICAID ==
[~2025-08-26] VITALS: Ht 188 cm; Wt 126.1 kg
[~2025-08-26 09:32] MED LIST changes: +IBUP-864 PO; +PRAV20TA17 PO; -PRAV20TA4 PO
[2025-08-26 10:00] LABS: LEUKOCYTE ESTERASE ,URINE NEGATIVE (Neg); NITRITES, URINE NEGATIVE (Neg); OCCULT BLOOD,URINE MODERATE (Neg)
[2025-08-26 10:01] LABS: UA COLLECTION TYPE CLN CATCH MIDSTREAM
[2025-08-26 10:07] LABS: MUCUS STRANDS NONE SEEN /LPF (Neg); SQUAMOUS EPITHELIAL CELL,UR NONE SEEN /LPF (FEW)
--- NOTE | 2025-08-26 10:15 | Physician Documentation ---
History of Present Illness ~ Chief Complaint: Blood in Urine Stated Complaint: URINARY ISSUES Time Seen by MD: 10:01 OK to notify your PCP?: Yes Primary Medical Doctor: daniel greer ([email or web address]) Mode of Arrival: POV HPI 60-year-old male patient who is pretty pleasant person ambulatory with a history of hypertension dyslipidemia BPH and neurologic pathology multiple limb surgery came to the emergency room because BM blood since 09:00 yesterday. He is not on blood thinner and he takes NS AID for his of the right is. He does not smoke cigarettes but he smoked weed. He quit smoking since . No alcohol no drugs. No nausea vomiting diarrhea fever or chills. Medication Reconciliation Allergies: Coded Allergies: No Known Drug Allergies (Verified Allergy, Unknown, 08/26/25) Scheduled Amlodipine Besylate (Amlodipine Besylate), 1 TAB PO HS, (Reported) Fenofibrate,Micronized (Fenofibrate), 1 TAB PO HS, (Reported) Ibuprofen (Ibu), 1 TAB PO Q8H Ketoconazole (Ketoconazole), 1 APPLIC TOP DAILY, (Reported) Levofloxacin (Levofloxacin), 1 TAB PO DAILY Lidocaine Hcl (Xylocaine Jelly), 1 APPLIC TOP Q12H Losartan Potassium (Losartan Potassium), 1 TAB PO HS, (Reported) Meloxicam (Mobic), 15 MG PO DAILY, (Reported) Pravastatin Sodium (Pravastatin Sodium), 2 TAB PO HS, (Reported) Tranexamic Acid (Tranexamic Acid), 2 TAB PO Q8H Ziprasidone Hcl (Geodon), 20 MG PO Q12H, (Reported) Scheduled PRN Hydrocodone Bit/Acetaminophen (Hydrocodon-Acetaminophn 10-325 tablet), 1 TAB PO Q6H PRN for pain, (Reported) Sildenafil Citrate (Sildenafil Citrate), 1 TAB PO DAILY PRN for ED, (Reported) Past Medical History Past Medical History: High Cholesterol, Hypertension, *MUSCULOSKELETAL*, Arthritis, Extremity Fracture, *PSYCH* Past Surgical History: orthopedic surgeries Alcohol Use: None Drug Use: none Lives with: Alone Lives In: Home Occupation: employed Review of Systems ROS As stated above in the HPI, otherwise all systems are reviewed and negative. Physical Exam Vital Signs: Temperature: 97.4, Source: Temporal, Heart Rate: 60, Respiratory Rate: 16, BP: 153/84, Pulse Oximetry: 99, Weight: 126.100 Oxygen Flow Rate: 0 Physical Exam Reviewed vital signs and they are well within normal range. Const: Not in acute cardiopulmonary distress Head: Atraumatic Eyes: Normal Conjunctiva , no pallor, no jaundice ENT: Normal External Ears, Nose and Mouth. Moist mucous membranes Neck: Full range of motion. No meningismus Resp: Clear to auscultation bilaterally. Normal work of breathing Cardio: Heart rate 60/minute. Regular rate and rhythm, no murmurs. Skin well perfused Abd: Soft, non-tender, non-distended. Normal bowel sounds. No rebound or g uarding Skin: No petechiae or rashes. Warm and dry Back: No midline or flank tenderness Ext: No cyanosis, or edema Neuro: Awake and alert Psych: Normal Mood and Affect Progress Results/Orders Results/Orders Orders - BILLY LYNN MD Ultrasound Kidney Non Vasc (08/26/25 ) Completed Orders - BILLY LYNN MD Ua W/Microscopic, Cult If Ind (08/26/25 09:43) Cbc/Diff (08/26/25 10:09) BMP (08/26/25 10:09) Ultrasound Kidney Non Vasc (08/26/25 ) Vital Signs 08/26/25 08/26/25 09:40 12:18 Temp 97.4 97.4 Pulse 60 78 Resp 16 18 B/P (MAP) 153/84 145/89 Pulse Ox 99 99 O2 Flow Rate 0 Laboratory Tests Test 08/26/25 09:43 08/26/25 10:44 Urine Specimen Description Cln catch midstream Urine Color Straw Urine Clarity Clear Urine pH 6.0 Urine Specific [place] 1.010 Urine Protein Negative Urine Glucose (UA) Negative Urine Ketones Negative Urine Occult Blood Moderate H Urine Nitrite Negative Urine Bilirubin Negative Urine Urobilinogen 0.2 Urine Leukocyte Esterase Negative Urine RBC 20-50 Urine WBC 0-4 Urine Squamous Epithelial Cells None seen Urine Bacteria Few Urine Mucus None seen Urine Culture Indicated Not ind Volume Urine Centrifuged 10 ml Urine Comment White Blood Count 5.8 Red Blood Count 4.15 L Hemoglobin 13.0 L Hematocrit 37.1 L Mean Corpuscular Volume 89.4 Mean Corpuscular Hemoglobin 31.2 H Mean Corpuscular Hemoglobin Concent 34.9 Red Cell Distribution Width 13.6 Platelet Count 146 Mean Platelet Volume 10.0 Neutrophils (%) (Auto) 68.3 Lymphocytes (%) (Auto) 21.1 Monocytes (%) (Auto) 7.7 Eosinophils (%) (Auto) 2.2 Basophils (%) (Auto) 0.7 Neutrophils # (Auto) 3.9 Lymphocytes # (Auto) 1.2 Monocytes # (Auto) 0.4 Eosinophils # (Auto) 0.1 Basophils # (Auto) 0.0 CBC Comment Sodium Level 138 Potassium Level 4.0 Chloride Level 107 Carbon Dioxide Level 25.5 Anion Gap 6 L Blood Urea Nitrogen 17 Creatinine 1.11 H Estimated GFR/1.73 m2 67 BUN/Creatinine Ratio 15.3 Glucose Level 95 Calcium Level 8.6 Albumin 4.1 Chemistry Comments Medical Decision Making Additional information obtaine: old records Findings During the physical examination, the findings suggestive of acute life- threatening condition such as JVD, tracheal deviation, acidotic breathing, noisy stridorous breath sounds, pulses paradoxus, muffled heart sounds, unequal breath sounds, abdominal rigidity and rebound tenderness, focal neurological deficits, cool clammy skin, severe hypotension, severe tachycardia or bradycardia are absent. Physical examination is unremarkable. Ultrasound of both kidneys does not show any abnormalities. CBC WBC 5.8 H&H 13 and 37.1 platelets 46. BNP is within normal limit. UA shows microscopic as far as gross hematuria. I will put him on antibiotics and tranexamic acid The patient will be discharged with aftercare instructions. Urinary Diff Dx:Considerations: Include: Bowel obstruction Genital Diff Dx:Considerations: Include: Abscess Departure Disposition: 01 HOME / SELF CARE / HOMELESS Impression: Primary Impression: Hematuria Condition: Stable Discharge Instructions: Hematuria, Adult Additional Instructions: Thank you for coming to our Emergency Department today. Push fluids. Please ask your nurse or provider if you have questions about your care today and do not leave until all your questions have been answered. Please use any medications given as directed and follow-up with your doctor (or the doctor you were referred to) in the next 1-3 days. Your primary care doctor can help to coordinate outpatient specialty care and provide authorization for specialty referral as needed. If you do not have a primary care doctor you [facility] You may also use motrin and tylenol as needed for fever and/or pain unless instructed otherwise by your provider or nurse. Indications for more urgent follow-up have been discussed, but you may return to the Emergency Department at ANY time for any worrisome or worsening symptoms. County Facilities: County Facilities: [facility]: [facility] [place] Address:[address] [place] [address] [facility]: [place] Address:[address] [place] [address] [facility]: Telemedicine Address:[address] [place] [address] [facility] Address:[address] [place] [address] Registration Billing Pharmacy Referrals [facility] Address:[address] [place] [id number] Referrals: NO PRIMARY CARE PROVIDER (PCP) Prescriptions Levofloxacin (Levofloxacin) 500 Mg Tablet 1 TAB PO DAILY for 10 Days, #10 TAB Prov: BILLY LYNN MD 08/26/25 Tranexamic Acid (Tranexamic Acid) 650 Mg Tablet 2 TAB PO Q8H for 5 Days, #30 TAB 0 Refills Prov: BILLY LYNN MD 08/26/25 Signature Scribe Signature: x Attestation: BILLY Clarke MD Aug 26, 2025 10:15
--- NOTE | 2025-08-26 10:54 | RADIOLOGY REPORT ---
INDICATION: Hematuria TECHNIQUE: Multiple real-time sonographic images of the kidneys and bladder were obtained. COMPARISON: None FINDINGS: RIGHT kidney measures 12 x 6.2 x 5.9 cm . LEFT kidney measures 12.1 x 6.7 x 6.1 cm . No hydronephrosis, urolithiasis, or renal mass. Normal cortical echogenicity and parenchymal thickness bilaterally. Urinary bladder is unremarkable. IMPRESSION: 1. Unremarkable examination.
[2025-08-26 10:55] LABS: MEAN PLATELET VOLUME 10.0 FL (7.4-10.4); RED CELL DISTRIBUTION WIDTH 13.6 % (11.5-14.5)
[2025-08-26 11:12] LABS: CREATININE 1.11 MG/DL (0.60-1.10); TOTAL CARBON DIOXIDE 25.5 MMOL/L (24-32); eCRCL 81 ML/MIN; eGFR 67 ML/MIN
[2025-08-26] MEDS ORDERED: TRAN650T5 PO (12:07)
[2025-08-26] MEDS ORDERED: LEVO-65 PO (12:07)
[2025-08-26 12:18] VITALS: BP 145/89; PULSE 78; RESP 18; TEMP 97.4; O2SAT 99
== END 2025-08-26 12:21 | disposition home or self-care (01) ==
LOC: ER 09:33
DX: R31.9 Hematuria, unspecified (principal); M19.90 Unspecified osteoarthritis, unspecified site; I10 Essential (primary) hypertension; E78.00 Pure hypercholesterolemia, unspecified; Z79.899 Other long term (current) drug therapy; Z98.890 Other specified postprocedural states; Z60.2 Problems related to living alone
CPT/HCPCS: 36415; 76770; 80048; 81001; 85025; 99284